=== PATIENT | female | born 1970 | race American Indian/Alaskan Native ===

== ENCOUNTER 2019-12-21 15:29 | Outpatient (CLI) | payer BC ==
[2019-12-21 15:51] LABS: Basophils # (Auto) 0.1 K/mm3 (0.0-0.1); Basophils % (Auto) 0.7 % (0.0-1.8); Eosinophils # (Auto) 0.1 K/mm3 (0.0-0.4); Eosinophils % (Auto) 1.5 % (0.0-4.3); Hematocrit 40.3 % (30.3-42.9); Hemoglobin 13.5 gm/dl (10.1-14.3); Lymphocytes # (Auto) 2.5 K/mm3 (1.2-5.4); Lymphocytes % (Auto) 34.2 % (13.4-35.0); Mean Corpuscular HGB Conc 33 % (30-34); Mean Corpuscular Volume 93 fl (79-97); Monocytes # (Auto) 0.5 K/mm3 (0.0-0.8); Monocytes % (Auto) 6.4 % (0.0-7.3); Platelet Count 214 K/mm3 (140-440); Red Blood Count 4.33 M/mm3 (3.65-5.03); Red Cell Distribution Width 12.6 % (13.2-15.2)
[2019-12-21 16:13] LABS: Alanine Aminotransferase 14 units/L (7-56); Albumin 4.5 g/dL (3.9-5); BUN/Creatinine Ratio 18; Blood Urea Nitrogen 11 mg/dL (7-17); Calcium 9.2 mg/dL (8.4-10.2); Chol/HDL Ratio 4.05 %; HDL Cholesterol 56 mg/dL (40-59); Hemolysis Index 2; LDL Cholesterol,Direct 154 mg/dL (50-130)
== END 2019-12-21 15:30 | disposition home or self-care (01) ==
LOC: LAB 15:29
PROVIDERS: ATTEND Internal Medicine
DX: Z00.00 Encounter for general adult medical examination without abnormal findings (principal); Z13.220 Encounter for screening for lipoid disorders; Z13.21 Encounter for screening for nutritional disorder; I10 Essential (primary) hypertension; Z13.1 Encounter for screening for diabetes mellitus; E03.9 Hypothyroidism, unspecified
CPT/HCPCS: 36415; 80053; 80061; 82306; 82607; 83036; 84439; 84443; 85025

== ENCOUNTER 2020-03-04 08:53 | Day surgery (SDC) | payer BC ==
[~2020-03-04 08:53] MED LIST: LACTATED RINGERS 1,000 ML IV SCH; SODIUM CHLORIDE 0.9% 1000 ML 1,000 ML IV SCH
--- NOTE | 2020-03-04 09:27 | Anesthesia Consultation ---
Anesthesia Consult and Med Hx - Airway Anesthetic Teeth Evaluation: Good ROM Head & Neck: Adequate Mental/Hyoid Distance: Adequate Mallampati Class: Class II Intubation Access Assessment: Good - Pulmonary Exam CTA: Yes - Cardiac Exam Cardiac Exam: RRR - Pre-Operative Health Status ASA Pre-Surgery Classification: ASA2 Proposed Anesthetic Plan: TIVA - Cardiovascular System Hx Hypertension: Yes - Endocrine Hx Hypothyroidism: Yes - Other Systems Hx Cancer: Yes
--- NOTE | 2020-03-04 09:28 | Anesthesia Day of Surgery ---
Anesthesia Day of Surgery - Day of Surgery Patient Examined: Yes Patient H&P Reviewed: Yes Patient is NPO: Yes
[2020-03-04] MEDS ORDERED: LIDOCAINE MPF (2%) 20 MG/1 ML VIAL 5 ML ONE (09:30)
[2020-03-04] MEDS ORDERED: propofoL 200 MG/20 ML VIAL IV ONE ×2 (09:30)
--- NOTE | 2020-03-04 10:41 | Short Stay Summary ---
Short Stay Documentation Date of service: 03/04/20 Narrative H&P: The patient presents for diagnostic colonoscopy for hematochezia. She has a history of stage I colon cancer in 2006 treated by resection alone. Her last surveillance colonoscopy was about 10 years ago. - History Past Medical History: cancer (colon cancer), diabetes, hypertension, hypothyroidism, other (anxiety) Past Surgical History: bowel surgery Social history: no significant social history, lives with family - Allergies and Medications Current Medications: Allergies Sulfa (Sulfonamide Antibiotics) Allergy (Verified 03/03/20 12:08) Unknown Home Medications Medication Instructions Recorded Confirmed Last Taken Type Irbesartan-Hctz 150-12.5 mg Tb 150 mg PO DAILY 03/03/20 03/04/20 03/04/20 05:00 History Pantoprazole 40 mg PO DAILY 03/03/20 03/04/20 03/03/20 History Rosuvastatin Calcium 20 mg PO DAILY 03/03/20 03/04/20 03/03/20 History metFORMIN 500 mg PO DAILY 03/03/20 03/03/20 Unknown History Active Medications Lactated Ringer's (Lactated Ringers) 1,000 mls @ 100 mls/hr IV DIRECT KATINA Sodium Chloride (Nacl 0.9% 1000 Ml) 1,000 mls @ 50 mls/hr IV DIRECT KATINA Last Admin: 03/04/20 09:38 Dose: 50 mls/hr Documented by: - Physical exam General appearance: no acute distress, well-nourished Integumentary: no rash, no growths, no abnormal pigmentation HEENT: Atraumatic, PERRLA, EOMI, Mucous membr. moist/pink Lungs: Clear to auscultation Breasts: deferred Heart: Regular rate, Normal S1, Normal S2, No murmurs Gastrointestinal: normoactive bowel sounds, no tenderness, no distended, no masses, no guarding, no organomegaly Female Genitourinary: deferred Rectal Exam: normal exam-external/orifice, normal rectal tone, no mass Extremities: no ischemia, pulses intact, pulses symmetrical, No edema, normal temperature, normal color, Full ROM Neurological: Normal gait, Normal speech, Strength at 5/5 X4 ext, Normal tone, Sensation intact, Cranial nerves 3-12 NL - Brief post op/procedure progress note Date of procedure: 03/04/20 Findings: see dictation Estimated blood loss: none Pathology: list (biopsies of polypoid mass in descending colon) Specimen disposition: to lab Condition: stable - Disposition Condition at discharge: Good Disposition: DC-01 TO HOME OR SELFCARE - Discharge Diagnoses (1) Hematochezia Status: Acute (2) History of colon cancer, stage I Status: Acute (3) Hypertension Status: Acute (4) Diabetes Status: Acute Short Stay Discharge Plan Activity: other (No driving for 24 hours. No NSAIDS.) Weight Bearing Status: Full Weight Bearing Diet: regular Follow up with: MANISH GERARD MD [Primary Care Provider] - 7 Days
--- NOTE | 2020-03-04 10:50 | Operative Report ---
Operative Report Operative Report: Date of procedure: 03/04/2020 Preprocedure diagnosis: Hematochezia. Personal history of colon cancer 13 years ago. Post procedure diagnosis: 5 cm polypoid mass in the descending colon. Right hemicolectomy. Scattered diverticula. Procedure: Colonoscopy to the ileocolonic anastomosis. Biopsies of the polypoid mass. Tattooing of the mucosa distal to the mass. Endoscopist: Dr. Jacob Anesthesia: Monitored anesthesia care per anesthesia department Estimated blood loss: 0 Medications: Monitored anesthesia care. See separate report by anesthesia for details. After careful discussion of the nature and purpose of the procedure as well as details of the technique risks benefits and alternatives the patient gave consent. Please see recent history and physical from the office. The patient was placed in the left lateral decubitus position and medicated per anesthesia. A rectal exam was performed sphincter tone was normal there were no masses palpable. The Voxel (Internap)n 570 scope was passed transanally and advanced under continuous direct vision without difficulty to the ileocolonic anastomosis. The anastomosis was healthy in appearance and widely patent. The colon was well prepared. The remaining transverse colon was normal in appearance. There were a few scattered diverticula in the descending colon and sigmoid colon. In the mid descending colon there was a 5 cm polypoid neoplastic appearing mass with a broad-based attachment. The mass was non-ulcerated. The lesion did not appear technically feasible for endoscopic resection. Limited biopsies were then taken and 2 endoscopic tattoos placed on the mucosa just distal to the lesion. The rectum was normal on forward and retroflexed views. The procedure was well- tolerated overall and the patient was observed in recovery. Conclusions: Polypoid mass in the descending colon consistent with either an advanced polyp or cancer. The broad-based attachment in the size of the lesion precluded safe endoscopic resection. Status post tattoo placement and limited biopsies. Plan: The patient will need referral for surgical resection. Consideration of preop CT scan. Labs. Signed electronically: Williams Jacob M.D.
[2020-03-04 11:05] VITALS: BP 195/109
[2020-03-04] MEDS ORDERED: WATER FOR IRRIG STERILE 250 ML BOTTLE IR ONE (11:28)
[2020-03-04] MEDS ORDERED: hydrALAZINE 20 MG/1 ML INJ ONE (11:32)
--- NOTE | 2020-03-04 12:07 | Post Anesthesia Evaluation ---
- Post Anesthesia Evaluation Patient Participated: Yes Airway Patent: Yes Stable Respiratory Function: Yes Nausea/Vomiting: No Temp > 96.8F: Yes Pain Manageable: Yes Adequeate Hydration: Yes Anesthesia Complications: No Other Comments: Treated BP post op. VSS post op after treatment
== END 2020-03-04 08:54 | disposition home or self-care (01) ==
LOC: GIO 08:53
PROVIDERS: ATTEND Internal Medicine Gastroenterology
DX: K92.1 Melena (principal); K57.30 Diverticulosis of large intestine without perforation or abscess without bleeding; K63.5 Polyp of colon; K63.89 Other specified diseases of intestine; I10 Essential (primary) hypertension; E11.9 Type 2 diabetes mellitus without complications; F17.210 Nicotine dependence, cigarettes, uncomplicated; E03.9 Hypothyroidism, unspecified; Z85.038 Personal history of other malignant neoplasm of large intestine; Z88.2 Allergy status to sulfonamides; Z79.84 Long term (current) use of oral hypoglycemic drugs; Z79.899 Other long term (current) drug therapy; Z98.890 Other specified postprocedural states
CPT/HCPCS: 45380; 45381; 82962; 88305; 88342; J0360; J2704; J7030

== ENCOUNTER 2020-03-26 13:28 | Outpatient (CLI) | payer BC ==
[2020-03-26 14:24] LABS: Basophils # (Auto) 0.1 K/mm3 (0.0-0.1); Basophils % (Auto) 1.2 % (0.0-1.8); Eosinophils # (Auto) 0.1 K/mm3 (0.0-0.4); Eosinophils % (Auto) 1.5 % (0.0-4.3); Hematocrit 34.9 % (30.3-42.9); Hemoglobin 11.4 gm/dl (10.1-14.3); Lymphocytes # (Auto) 2.3 K/mm3 (1.2-5.4); Lymphocytes % (Auto) 28.6 % (13.4-35.0); Mean Corpuscular HGB Conc 33 % (30-34); Mean Corpuscular Volume 94 fl (79-97); Monocytes # (Auto) 0.5 K/mm3 (0.0-0.8); Monocytes % (Auto) 6.2 % (0.0-7.3); Platelet Count 228 K/mm3 (140-440); Red Blood Count 3.73 M/mm3 (3.65-5.03); Red Cell Distribution Width 12.7 % (13.2-15.2)
[2020-03-26 14:45] LABS: BUN/Creatinine Ratio 15; Blood Urea Nitrogen 12 mg/dL (7-17); Calcium 9.4 mg/dL (8.4-10.2); Hemolysis Index 7
--- NOTE | 2020-03-26 15:08 | XRay Report ---
CHEST PA AND LATERAL VIEWS INDICATION: COLON CANCER. COMPARISON: None. FINDINGS: Support devices: None. Heart: Within normal limits. Lungs/Pleura: No acute pulmonary or pleural findings. IMPRESSION: 1. No acute findings. Signer Name: Reinaldo Dubon MD Signed: 03/26/2020 3:04 PM Workstation Name: [id number]
--- NOTE | 2020-03-26 15:52 | Cat Scan Report ---
CT OF THE ABDOMEN AND PELVIS WITH INTRAVENOUS AND ORAL CONTRAST INDICATION / CLINICAL INFORMATION: History of colon cancer. TECHNIQUE: The patient received 100 cc Omnipaque [address] scans at this location are performed using CT dose reduction for ALARA by means of automated exposure control. COMPARISON: None available. FINDINGS: ABDOMEN: There is a right colectomy without local tumor recurrence or pathologic adenopathy. There is mild to moderate diffuse fatty infiltration of the liver without focal lesion. There are a couple of tiny low-density splenic lesions, the largest of which measures 8 mm. The gallbladder, bile ducts, p ancreas, adrenal glands and right kidney are normal. There is a 1.5 cm simple left renal cyst. The pankaj ng bases are clear. PELVIS: The distal ureters and urinary bladder are normal. The uterus and adnexal regions are unremar kable. There are scattered left colonic diverticula without acute inflammation. The appendix is surgi dexter absent. No abnormal mass or fluid collection is seen. There is mild broad-based diastases of th e rectus sheath centered at the umbilicus without focal hernia. I see no evidence of osseous metastat ic disease. IMPRESSION: 1. Right hemicolectomy without local tumor recurrence. 2. Mild to moderate diffuse fatty infiltration of the liver without hepatic metastatic disease. 3. A couple of subcentimeter splenic lesions are nonspecific and unlikely metastatic. Signer Name: Everette Moore MD Signed: 03/26/2020 3:47 PM Workstation Name: [id number]
== END 2020-03-26 13:29 | disposition home or self-care (01) ==
LOC: CT 13:28
PROVIDERS: ATTEND Surgery
DX: C18.9 Malignant neoplasm of colon, unspecified (principal); K76.0 Fatty (change of) liver, not elsewhere classified; K76.9 Liver disease, unspecified; D73.89 Other diseases of spleen; N28.1 Cyst of kidney, acquired; K57.30 Diverticulosis of large intestine without perforation or abscess without bleeding; M62.08 Separation of muscle (nontraumatic), other site; Z90.49 Acquired absence of other specified parts of digestive tract
CPT/HCPCS: 36415; 71046; 74177; 80048; 82378; 85025; Q9967